=== PATIENT | male | born 1950 | race Caucasian/White ===

== ENCOUNTER 2020-06-15 15:26 | Outpatient (RCR) | payer MEDICARE ==
[~2020-06-15 15:26] MED LIST: LIDOCAINE VISC 2% SOLN 15 ML UDC ONE; MINERAL OIL/PETROLAT/GLYCERI 6OZ BTL ONE
== END 2020-06-27 ==
LOC: WCC 15:26
PROVIDERS: ATTEND Plastic Surgery
DX: L89.154 Pressure ulcer of sacral region, stage 4 (principal); L89.324 Pressure ulcer of left buttock, stage 4; L89.322 Pressure ulcer of left buttock, stage 2; J99 Respiratory disorders in diseases classified elsewhere; Z94.5 Skin transplant status; M62.81 Muscle weakness (generalized); M62.82 Rhabdomyolysis; N18.5 Chronic kidney disease, stage 5; R41.82 Altered mental status, unspecified; N13.30 Unspecified hydronephrosis; R41.841 Cognitive communication deficit; N40.1 Benign prostatic hyperplasia with lower urinary tract symptoms; E03.9 Hypothyroidism, unspecified; Z74.01 Bed confinement status

== ENCOUNTER 2021-10-16 16:36 | Emergency (ER) | payer MEDICARE, OTHER ==
[~2021-10-16] VITALS: Ht 182.9 cm; Wt 90.7 kg
== END 2021-10-16 20:35 | disposition home or self-care (01) ==
LOC: ER 17:17
DX: T83.018A Breakdown (mechanical) of other urinary catheter, initial encounter (principal); F03.90 Unspecified dementia, unspecified severity, without behavioral disturbance, psychotic disturbance, mood disturbance, and anxiety; I10 Essential (primary) hypertension; E03.9 Hypothyroidism, unspecified
CPT/HCPCS: 87086; 87186; 99283